=== PATIENT | male | born 1980 | race Caucasian/White ===

== ENCOUNTER → 2021-11-14 | Outpatient (CLI) | payer MEDICARE, MEDICAID, SELFPAY ==
[2021-11-14 10:11] LABS: Absolute Lymphocyte Count 1.27 X10^3/uL (0.83-4.51); Basophil# 0.02 X10^3/uL; Basophil% 0.5 % (0-1); Eosinophil# 0.05 X10^3/uL; Eosinophils% 1.3 % (0-5); Hematocrit 41.8 % (40-54); Hemoglobin 12.9 g/dL (13.0-16.5); Lymphocyte # 1.27 X10^3/ul (0.83-4.51); Lymphocyte % 33.8 % (19-41); Mean Corp Hgb Conc 30.9 g/dL (32-36); Mean Corpuscular Hgb 27.7 pg (27.0-32.0); Mean Corpuscular Volume 89.7 fL (80-94); Mean Platelet Vol. 10.3 fl (6.2-12.0); Monocyte# 0.39 X10^3/uL; Monocyte% 10.4 % (0-10); NRBC Flagged by Analyzer 0 % (0-5); Neutrophil # 2.03 X10^3/uL (2.7-7.7); Platelet Count 167 K/mm3 (150-450); RBC Distribution Width CV 14.6 % (11.6-14.6); RBC Distribution Width SD 47.8 fl (35.1-43.9); Red Blood Count 4.66 M/mm3 (4.6-6.2); White Blood Count 3.8 K/mm3 (4.4-11.0)
[2021-11-14 10:41] LABS: Hemoglobin A1c 5.9 % (3.8-5.6)
[2021-11-14 10:55] LABS: ALB/GLOB Ratio 1.1 RATIO (0.9-2.4); AST(SGOT) 20 U/L (15-37); Alanine Aminotransfer ALT/SGPT 26 U/L (16-61); Albumin, Serum 3.8 g/dL (3.2-5.0); Alkaline Phosphatase 63 U/L (45-117); Anion Gap 4 (5-15); BUN 24 mg/dL (7-18); BUN/Creat Ratio 20.2 RATIO (10-20); Calcium,Total 9.3 mg/dL (8.5-10.1); Chloride 107 mmol/L (98-107); Cholesterol 169 mg/dL (200); Creatinine, Serum 1.19 mg/dL (0.70-1.30); EST Glomerular Filtration Rate 71 mL/min (>60); Est Glom Filt Rate - Afr Amer 86 mL/min (>60); Globulin 3.5 g/dL (2.2-4.2); Glucose 98 mg/dL (74-106); High Density Lipoprotein 39 mg/dL; Potassium 4.2 mmol/L (3.5-5.1); Protein, Total 7.3 g/dL (6.4-8.2); Sodium Level 138 mmol/L (136-145); Triglycerides 53 mg/dL; Very Low Density Lipoprotein 11 mg/dL (5-40)
== END | disposition home or self-care (01) ==
PROVIDERS: PCP Family Medicine; Referring Provider Family Medicine; Visit Provider Family Medicine
DX: Z00.00 Encounter for general adult medical examination without abnormal findings (principal); F39 Unspecified mood [affective] disorder
CPT/HCPCS: 36415; 80053; 80061; 83036; 85025

== ENCOUNTER 2022-12-16 15:55 | Emergency (ER) | payer MEDICARE, MEDICAID, SELFPAY ==
[2022-12-16 15:55] VITALS: BP 113/81; PULSE 90; RESP 16; TEMP 36.3; O2SAT 97
--- NOTE | 2022-12-16 16:40 | RAD_ITS ---
STUDY: X-RAY - RIGHT HAND REASON FOR EXAM: Male, 42 years old. PT CAUGHT HAND IN A WOOD SPLITTER. LACERATION TO 5TH FINGER TECHNIQUE: 3 view(s) of the hand. COMPARISON: None. FINDINGS: Normal radiocarpal articulation. Normal distal radioulnar joint. Normal visualized carpal bones. Normal carpal articulations Normal carpometacarpal articulation of the thumb. Normal second through fifth carpometacarpal joints. Normal metacarpi. Normal metacarpophalangeal joint of the thumb. Normal interphalangeal joint of the thumb. Normal proximal and distal phalanges of the thumb. Normal metacarpophalangeal joints of the second through fifth fingers. Normal proximal and distal interphalangeal joints of the second through fifth fingers. Normal phalanges of the second through fifth fingers. Soft tissue swelling and bandage material of the fifth digit. RAD/Hand Min 3 Views IMPRESSION: Soft tissue swelling and bandage artifact of the fifth digit. No demonstrable fracture. Electronically Signed: Odin Marsh MD (Brooks) at 17:15 EDT Reading Location ID and State: [facility] / [place] , Service support ,
[2022-12-16] MEDS: Diphth,Pertuss(Acell),Tet Vac 0.5 ML Vial IM (16:44)
[2022-12-16] MEDS: Lidocaine 1% (20 ml mdv) 20 ML Vial INFILT (16:45)
--- NOTE | 2022-12-16 16:52 | EDS_ITS ---
HPI History of Present Illness Chief Complaint: Wound Narrative Narrative: Patient is a 42-year-old male with history of anxiety, depression presents to the emergency department with right fifth finger pain. Patient was using a log splitter when his tip of his finger got pinched. He does have 2 avulsion like injuries to the palmar aspect as well as the back of the finger. He has full range of motion. He is concerned secondary to the bleeding. Tetanus vaccination is unknown. PFSH PFSH Medical History no medical history Allergy/AdvReac Type Severity Reaction Status Date / Time No Known Allergies Allergy Verified 12/16/22 15:55 Social History Smoking Status: Never smoker ROS ROS ED ROS Narrative Muscle skeletal: Negative for any muscle joint pain, stiffness, myalgias, arthralgias, neck pain, back pain. Avulsion light laceration to the palmar aspect of the right fifth digit. There seems to be some laceration to the posterior side. Nailbed appears unremarkable. The nailbed appears intact. No neurological focal deficit. Full range of motion. +2 radial pulse. Neurological: Negative for any headache, syncope, numbness or tingling, dizziness Skin: Negative for any rashes, lumps, itching, abrasions, lacerations Psychiatric: Negative for any depression, anxiety, stress, suicidal ideation, homicidal ideation Hematologic: Negative for any easy bruising, excessive bruising, easy bleeding Allergies: Negative for any eczema, hives, rash EXAM Physical Exam Const Vital Signs: 12/16/22 15:55 Temperature 97.3 F L Temperature Source Temporal Pulse Rate 90 Respiratory Rate 16 Blood Pressure 113/81 H Blood Pressure Mean 91 Pulse Ox 97 Oxygen Delivery Method Room Air [facility] MDM Radiography Diagnostic Testing: Clinical Impression(s) from Imaging Studies Hand X-Ray 12/16/22 16:40 IMPRESSION: Soft tissue swelling and bandage artifact of the fifth digit. No demonstrable fracture. Electronically Signed: Odin Marsh MD (Brooks) at 17:15 EDT , Treatment and Re-Evaluation :: All radiologic examinations were read, reviewed by the emergency department attending. From these reads, a plan of care will be put in place. Patient's x-ray of the hand shows soft tissue swelling and bandage artifact of the fifth digit. No demonstratable fracture. Patient was updated on his tetanus vaccination. I did perform a digital block on the right fifth digit. I was able to irrigate copiously with 200 cc of normal saline. Unfortunate this is an avulsion leg laceration, there is no suturing available. I was able to clean up the area, cut away some soft tissue. I then used Gelfoam to wrap the finger. I did have a long conversation with the patient as well as his parents regarding wound care. They were given another Gelfoam for home. Patient will keep his hand clean and dry. 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 He was given instructions to return, all questions were answered, both the patient and the mother and father are agreeable, patient stable for discharge Discharge Plan Triage Chief Complaint: Wound ED Midlevel Provider: Jerardo Quezada ED Provider: Jerardo Crystal Dx/Rx/DC Orders Clinical Impression: Finger laceration Instructions: ED Laceration, Old: Not Sutured, ED Laceration Minimize Scars, ED Laceration Hand with ... Stand Alone Forms: ED Work / School Excuse Primary Care Provider: Josselin Reddy Referrals: Josselin Reddy MD [Primary Care Provider] - Activity Restrictions/Additional Instructions: Tomorrow in the evening you may change the dressing for the first time and use the Gelfoam. After that, change the dressing twice a day. Disposition Disposition: Home, Self Care
== END 2022-12-16 17:51 | disposition home or self-care (01) ==
PROVIDERS: Emergency Provider Emergency Medicine; PCP Family Medicine; Visit Provider Emergency Medicine
DX: S61.216A Laceration without foreign body of right little finger without damage to nail, initial encounter (principal); Z23 Encounter for immunization; W23.2XXA Caught, crushed, jammed or pinched between a moving and stationary object, initial encounter; Y93.89 Activity, other specified
CPT/HCPCS: 73130; 90715; 99282

== ENCOUNTER → 2022-12-25 | Outpatient (CLI) | payer MEDICARE, MEDICAID, SELFPAY ==
[2022-12-25 12:22] LABS: Absolute Lymphocyte Count 1.04 X10^3/uL (0.83-4.51); Absolute Neutrophil Count 1.2 X10^3/uL (2.0-7.7); Basophil# 0.02 X10^3/uL; Basophil% 0.7 % (0-1); Eosinophil# 0.07 X10^3/uL; Eosinophils% 2.5 % (0-5); Hematocrit 40.5 % (40-54); Hemoglobin 12.4 g/dL (13.0-16.5); Lymphocyte # 1.04 X10^3/ul (0.83-4.51); Lymphocyte % 37.5 % (19-41); Mean Corp Hgb Conc 30.6 g/dL (32-36); Mean Corpuscular Hgb 27.6 pg (27.0-32.0); Mean Corpuscular Volume 90.2 fL (80-94); Mean Platelet Vol. 11.1 fl (6.2-12.0); Monocyte# 0.39 X10^3/uL; Monocyte% 14.1 % (0-10); NRBC Flagged by Analyzer 0 % (0-5); Neutrophil # 1.24 X10^3/uL (2.7-7.7); Neutrophil % 44.8 % (47-70); Platelet Count 168 K/mm3 (150-450); RBC Distribution Width CV 14.9 % (11.6-14.6); RBC Distribution Width SD 49.6 fl (35.1-43.9); Red Blood Count 4.49 M/mm3 (4.6-6.2); White Blood Count 2.8 K/mm3 (4.4-11.0)
[2022-12-25 12:43] LABS: AST(SGOT) 18 U/L (15-37); Alanine Aminotransfer ALT/SGPT 27 U/L (16-61); Albumin, Serum 3.7 g/dL (3.2-5.0); Alkaline Phosphatase 82 U/L (45-117); Anion Gap 4 (5-15); BUN 23 mg/dL (7-18); BUN/Creat Ratio 21.5 RATIO (10-20); Calcium,Total 9.1 mg/dL (8.5-10.1); Chloride 106 mmol/L (98-107); Cholesterol 137 mg/dL (200); Creatinine, Serum 1.07 mg/dL (0.70-1.30); EST Glomerular Filtration Rate 80 mL/min (>60); Est Glom Filt Rate - Afr Amer 97 mL/min (>60); Globulin 3.6 g/dL (2.2-4.2); Glucose 88 mg/dL (74-106); High Density Lipoprotein 38 mg/dL; Potassium 4.1 mmol/L (3.5-5.1); Protein, Total 7.3 g/dL (6.4-8.2); Sodium Level 141 mmol/L (136-145); Triglycerides 42 mg/dL; Very Low Density Lipoprotein 8 mg/dL (5-40)
== END | disposition home or self-care (01) ==
LOC: BFHLAB 08:47
PROVIDERS: PCP Family Medicine; Referring Provider Family Medicine; Visit Provider Family Medicine
DX: Z00.00 Encounter for general adult medical examination without abnormal findings (principal); F39 Unspecified mood [affective] disorder
CPT/HCPCS: 36415; 80053; 80061; 85025

== ENCOUNTER → 2023-12-06 | Outpatient (CLI) | payer MEDICARE, MEDICAID, SELFPAY ==
[2023-12-06 12:42] LABS: Absolute Lymphocyte Count 1.02 X10^3/uL (0.83-4.51); Absolute Neutrophil Count 3.5 X10^3/uL (2.0-7.7); Basophil# 0.03 X10^3/uL; Basophil% 0.6 % (0-1); Eosinophil# 0.05 X10^3/uL; Hematocrit 41.8 % (40-54); Hemoglobin 13.2 g/dL (13.0-16.5); Lymphocyte # 1.02 X10^3/ul (0.83-4.51); Lymphocyte % 20.2 % (19-41); Mean Corp Hgb Conc 31.6 g/dL (32-36); Mean Corpuscular Hgb 27.8 pg (27.0-32.0); Mean Corpuscular Volume 88.2 fL (80-94); Mean Platelet Vol. 11.2 fl (6.2-12.0); Monocyte# 0.47 X10^3/uL; Monocyte% 9.3 % (0-10); NRBC Flagged by Analyzer 0 % (0-5); Neutrophil # 3.46 X10^3/uL (2.7-7.7); Neutrophil % 68.7 % (47-70); Platelet Count 178 K/mm3 (150-450); RBC Distribution Width CV 14.7 % (11.6-14.6); RBC Distribution Width SD 47.6 fl (35.1-43.9); Red Blood Count 4.74 M/mm3 (4.6-6.2)
[2023-12-06 13:08] LABS: ALB/GLOB Ratio 1.1 RATIO (0.9-2.4); AST(SGOT) 18 U/L (15-37); Alanine Aminotransfer ALT/SGPT 23 U/L (16-61); Albumin, Serum 4.1 g/dL (3.2-5.0); Alkaline Phosphatase 75 U/L (45-117); Anion Gap 5 (5-15); BUN 23 mg/dL (7-18); Calcium,Total 9.6 mg/dL (8.5-10.1); Chloride 105 mmol/L (98-107); Creatinine, Serum 1.15 mg/dL (0.70-1.30); EST Glomerular Filtration Rate 73 mL/min (>60); Est Glom Filt Rate - Afr Amer 89 mL/min (>60); Globulin 3.7 g/dL (2.2-4.2); Glucose 100 mg/dL (74-106); Potassium 3.8 mmol/L (3.5-5.1); Protein, Total 7.8 g/dL (6.4-8.2); Sodium Level 138 mmol/L (136-145)
== END | disposition home or self-care (01) ==
LOC: BFHLAB 09:40
PROVIDERS: PCP Family Medicine; Referring Provider Family Medicine; Visit Provider Family Medicine
DX: Z00.00 Encounter for general adult medical examination without abnormal findings (principal); F39 Unspecified mood [affective] disorder
CPT/HCPCS: 36415; 80053; 85025

== ENCOUNTER → 2024-05-15 | Outpatient (CLI) | payer MEDICARE, MEDICAID, SELFPAY ==
[2024-05-15 12:21] LABS: Absolute Lymphocyte Count 0.83 X10^3/uL (0.83-4.51); Absolute Neutrophil Count 2.2 X10^3/uL (2.0-7.7); Basophil# 0.03 X10^3/uL; Basophil% 0.8 % (0-1); Eosinophil# 0.06 X10^3/uL; Eosinophils% 1.7 % (0-5); Hematocrit 41.2 % (40-54); Hemoglobin 12.6 g/dL (13.0-16.5); Lymphocyte # 0.83 X10^3/ul (0.83-4.51); Lymphocyte % 22.9 % (19-41); Mean Corp Hgb Conc 30.6 g/dL (32-36); Mean Corpuscular Hgb 26.9 pg (27.0-32.0); Mean Platelet Vol. 10.1 fl (6.2-12.0); Monocyte# 0.49 X10^3/uL; Monocyte% 13.5 % (0-10); NRBC Flagged by Analyzer 0 % (0-5); Neutrophil % 60.8 % (47-70); Platelet Count 169 K/mm3 (150-450); RBC Distribution Width CV 14.3 % (11.6-14.6); Red Blood Count 4.68 M/mm3 (4.6-6.2); White Blood Count 3.6 K/mm3 (4.4-11.0)
[2024-05-15 12:41] LABS: AST(SGOT) 22 U/L (15-37); Alanine Aminotransfer ALT/SGPT 30 U/L (16-61); Albumin, Serum 3.9 g/dL (3.2-5.0); Alkaline Phosphatase 86 U/L (45-117); Anion Gap 5 (5-15); BUN 24 mg/dL (7-18); BUN/Creat Ratio 23.3 RATIO (10-20); Calcium,Total 9.7 mg/dL (8.5-10.1); Chloride 107 mmol/L (98-107); Cholesterol 131 mg/dL (200); Creatinine, Serum 1.03 mg/dL (0.70-1.30); EST Glomerular Filtration Rate 83 mL/min (>60); Est Glom Filt Rate - Afr Amer 101 mL/min (>60); Globulin 3.8 g/dL (2.2-4.2); Glucose 96 mg/dL (74-106); High Density Lipoprotein 40 mg/dL; Potassium 4.8 mmol/L (3.5-5.1); Protein, Total 7.7 g/dL (6.4-8.2); Sodium Level 140 mmol/L (136-145); Triglycerides 43 mg/dL; Very Low Density Lipoprotein 9 mg/dL (5-40)
[2024-05-15 14:13] LABS: Hemoglobin A1c 5.5 % (3.8-5.6)
== END | disposition home or self-care (01) ==
LOC: BFHLAB 09:39
PROVIDERS: PCP Family Medicine; Visit Provider Family Medicine
DX: Z00.00 Encounter for general adult medical examination without abnormal findings (principal); E78.5 Hyperlipidemia, unspecified; F39 Unspecified mood [affective] disorder; R73.01 Impaired fasting glucose
CPT/HCPCS: 36415; 80053; 80061; 83036; 85025

== ENCOUNTER → 2024-12-11 | Outpatient (CLI) | payer MEDICARE, MEDICAID, SELFPAY ==
[2024-12-11 12:40] LABS: Hematocrit 38.5 % (40-54); Hemoglobin 12.2 g/dL (13.0-16.5); Immature Granulocytes Count 0.000 X10^3/uL (0.0-0.0); Mean Corp Hgb Conc 31.7 g/dL (32-36); Mean Corpuscular Volume 88.1 fL (80-94); Mean Platelet Vol. 10.7 fl (6.2-12.0); NRBC Flagged by Analyzer 0 % (0-5); Platelet Count 201 K/mm3 (150-450); RBC Distribution Width CV 14.3 % (11.6-14.6); RBC Distribution Width SD 46.2 fl (35.1-43.9); Red Blood Count 4.37 M/mm3 (4.6-6.2); White Blood Count 3.1 K/mm3 (4.4-11.0)
[2024-12-11 13:17] LABS: Ferritin 153 ng/mL (37-417)
== END | disposition home or self-care (01) ==
LOC: BFHLAB 09:24
PROVIDERS: PCP Family Medicine; Visit Provider Family Medicine
DX: D64.9 Anemia, unspecified (principal)
CPT/HCPCS: 36415; 82728; 85025

== ENCOUNTER 2025-01-20 06:32 | Day surgery (SDC) | payer MEDICARE, MEDICAID, SELFPAY ==
[2025-01-20] VITALS (8 sets, daily range): BP systolic 101–114; BP diastolic 64–82; PULSE 66–75; RESP 14–16; TEMP 36.6–37.1; O2SAT 98–100; BMI 20.9
--- NOTE | 2025-01-20 07:15 | HP.PCM_ITS ---
History and Physical Date of Admission: 01/20/25 Intake Vital Signs 12/16/2314:55 01/12/2510:06 Height 5 ft 7 in 5 ft 7 in Weight: 139 lb BMI 21.7 BP 103/67 Blood Pressure Location Rt brachial Position Sitting Respiration 17 Pulse 83 Pulse Source Monitor Pulse Oximetry (%) 98 Oxygen Delivery Method room air Intake Visit Reasons: COLONOSCOPY Allergies No Known Allergies Allergy (Verified 01/12/25 10:06) PFSH Medical History (Updated 01/12/25 @ 10:05 by Rachel Friend) Acid reflux Anxiety Depression Schizoaffective disorder Family History (Updated 01/12/25 @ 10:06 by Rachel Friend) Mother Thyroid disorder Father Heart disease Social History Smoking Status: Never smoker HPI HPI HPI: Patient is a 44-year-old male here for screening colonoscopy. He denies abdominal pain or blood in the stool. He has never had a colonoscopy in the past. He has no family history of colon cancer. ROS General General: No weight change, appetite, fatigue, colon cancer, breast cancer or weakness HEENT HEENT: No difficulty swallowing, eye injury, eye surgery, swollen glands or hoarseness Endo Endocrine: No thyroid disease, diabetes mellitus, thyroid cancer, Hair loss, heat intolerance or cold intolerance Skin Skin: No rash or changing moles Musc Musculoskeletal: Yes back problems; No arthritis, rheumatoid arthritis, gout or joint pain Cardio Cardiovascular: No murmur, pacemaker, heart disease, atrial fibrillation, high blood pressure, heart attack, heart stent, palpitations, shortness of breath with exertion or chest pain Psych Psychiatric: Yes depression and anxiety; No hearing voices Resp Respiratory: No shortness of breath, No sleep apnea, No cough, No COPD, No ast hma, No emphysema and No wheezing Gastro Gastrointestinal: No abdominal pain, No nausea or vomiting, Yes diarrhea, No constipation, No blood in stool, Yes acid reflux, Yes hemorrhoids, No ulcers, No gallbladder problem and No black,tarry stools John Hematologic: No blood thinners, No blood disorders, No bleeding, No anemia and No blood clots Neuro Neurologic: No system reviewed and no additional complaints, except as documented, No as per HPI, No abnormal gait, No abnormal hearing, No abnormal movements, No abnormal speech, No behavioral changes, No burning sensations, No confusion, No convulsions, No disequilibrium, No dizziness, No localized weakness, No frequent falls, No headache(s), No lack of coordination, No loss of vision, No memory loss, No numbness, No other visual disturbances, No radicular pain, No restless legs, No sensory deficit, No syncope, No tingling, No tremor(s), No weakness and No other Exam Const General: cooperative Orientation: alert and oriented x3 HENMT Head: normal to inspection Neck Neck: normal visual inspection and full ROM Chest Chest palpation & inspection: normal inspection of the chest Resp Effort & Inspection: normal respiratory effort Auscultation: clear to auscultation bilaterally Cardio Rate: regular rate Rhythm: regular rhythm GI Inspection: non-distended Palpation: soft and nontender Skin General: no rashes or lesions noted Neuro General: patient alert and patient oriented x3 Extrem General: full ROM Psych Appearance: grossly normal Mental Status: mental status grossly normal Assessment and Plan Assessment and Plan (1) Encounter for screening for malignant neoplasm of colon: Status: Acute Plan: I explained endoscopy in detail to the patient. I explained the risks including but not limited to stroke or heart attack with anesthesia, perforation of the GI tract, bleeding, infection. I explained that any of these could necessitate further emergency surgery. The patient understands and all questions were answered sufficiently. The patient wishes to proceed with procedure. Mike Garnica MD Pager: [facility] [address] [place] [address], [address] [place] [address] Office: I have examined the patient and the H&P has been reviewed. There are no clinical changes since date of exam.
[2025-01-20] MEDS: Lactated Ringers 1,000 ML 15 ML IV (07:22)
--- NOTE | 2025-01-20 07:36 | PCM.PRE.AN2 ---
ASA Classification* ASA Classification ASA Classification: 2 Assessment & Plan Anesthesia* Anesthesia Assessment Anesthesia Assessment: Discussed sedation and/or anesthesia options, risks, benefits, and alternatives with patient/parents/legal guardian/POA. Questions invited. The patient/parents/legal guardian/POA seems to understand and agrees to proceed with anesthesia plan. Reviewed the physical assessment, medical history, allergy history and patient home medications list prior to surgery/procedure/anesthetic and documented any changes. Performed airway and anesthesia risk assessments. Anesthesia Type Anesthesia Type: MAC History Source History Obtained from:: Patient and Chart Anesthesia Focused Assessment* Temperature: 98.7 F Pulse Rate: 75 Blood Pressure: 114/80 Respiratory Rate: 16 Pulse Ox: 100 Oxygen Delivery Method: Room Air Airway Assessment Mouth opens: 2 cm Mallampati Score: IV Teeth Condition: Intact Neck Range of motion (ROM): Limited ROM (Somewhat Decreased) Labs Anesthesia Preop lab: CBC WBC, (4.4-11.0) 3.1 K/mm3 L 12/11/24, : RBC, (4.6-6.2) 4.37 M/mm3 L 12/11/24, :25 Hgb, (13.0-16.5) 12.2 g/dL L 12/11/24, :25 Hct, (40-54) 38.5 % L 12/11/24, :25 Plt Count, (150-450) 201 K/mm3 12/11/24, 09:25 CHEMISTRY Potassium, (3.5-5.1) 4.8 mmol/L 05/15/24, 09:40 Sodium, (136-145) 140 mmol/L 05/15/24, 09:40 BUN, (7-18) 24 mg/dL H 05/15/24, 09:40 Creatinine, (0.70-1.30) 1.03 mg/dL 05/15/24, :40 Glucose, (74-106) 96 mg/dL 05/15/24, 09:40 COAG Pre-Assessment Diagnosis/Proposed Procedure Planned Operative Procedure(s): COLONOSCOPY Anesthesia History Anesthesia History - cigarette tipper: Anesthesia History - cigarette tipper Hx Hospitalization No 01/14/25 15:47 Any Problems With Anesthesia No 01/14/25 15:47 Cholinesterase deficiency No 01/14/25 15:47 You/Your Family Experience No 01/14/25 15:47 fever (hyperthermia) with Relationship Recent Exposure to Contagious No 01/20/25 07:14 Disease Does patient have nerve No 01/14/25 15:47 stimulator Patient instructed to have device shut off --Does patient have Pacemaker No 01/20/25 07:15 or ICD? When Was Last Pacemaker Check QUESTION #4 FULL TEXT: You/Your Family Experience fever (hyperthermia) with Anesthesia Last Oral Intake Last Oral intake: Last Oral Intake NPO since 00:00 01/20/25 07:15 Meds taken in AM with sips of Yes 01/20/25 07:15 water? Meds patient instructed to bupropion 01/20/25 07:15 take am of surgery sertraline Any additional information?: Yes Meds taken in AM with sips of water?: Yes PONV PONV - cigarette tipper: PONV - cigarette tipper Female No 01/14/25 15:47 HX of Motion Sickness No 01/14/25 15:47 HX of N/V After Surgery No 01/14/25 15:47 Non-Smoker Yes 01/14/25 15:47 Duration of Surgery greater No 01/14/25 15:47 than 60 minutes Number of Risk Factors 1 01/14/25 15:47 PONV Score Low Risk 01/14/25 15:47 Height & Weight Height & Weight: Anesthesia: Height & Weight Height 5 ft 7 in 01/20/25 07:15 Weight: 60.7 kg 01/20/25 07:15 Body Mass Index (BMI) 20.9 01/20/25 07:15 Respiratory Assessment Respiratory Assessment - cigarette tipper: Respiratory Tract Infection Hx - cigarette tipper Hx Respiratory Tract Infection No 01/14/25 15:47 STOP Sleep Apnea STOP Sleep Apnea - cigarette tipper: STOP Sleep Apnea - cigarette tipper Hx Hypertension No 01/14/25 15:47 Hx Sleep Apnea No 01/14/25 15:47 CPAP BIPAP Do you snore loudly (louder No 01/14/25 15:47 than talking or can be heard Do you often feel tired/ No 01/14/25 15:47 fatigued/ sleepy during daytime? Has anyone observed you stop No 01/14/25 15:47 breathing during sleep? STOP Results Negative 01/14/25 15:47 QUESTION #5 FULL TEXT : Do you snore loudly (louder than talking or can be heard through closed doors)? Tobacco Use History Tobacco Use History - cigarette tipper: Tobacco Use History - cigarette tipper Tobacco Use Smoking Status Never smoker 01/14/25 15:47 Hx Tobacco Use No 01/14/25 15:47 Years Smoking Packs Smoked per Day Smoking Cessation Date was within the last 15 years Hx Smoking Cessation Date Hx Smoking Cessation Counseling Hematologic Medial History Hematologic Hx - cigarette tipper: Hematologic Medical Hx - meat blender Hx of Blood Transfusion No 01/14/25 15:47 Hx of Transfusion in last 3 No 01/14/25 15:47 Months Date of Last Transfusion (if within last 3 months) Ever experience any problems No 01/14/25 15:47 with transfusion(s)? Specify any problems Hx of Preganancy in last 3 N/A 01/14/25 15:47 Months Nurse Filling Out Transfusion [email or web address] 01/14/25 15:47 & Questions: Date: 01/14/25 01/14/25 15:47 Time: 15:49 01/14/25 15:47 Patient unable to answer at this time (ie. confused, unrespo /Reproduction History /Reproductive History - cigarette tipper: /Reproductive Hx- cigarette tipper Hx Now Gestational Age (in weeks): EDC: Hx Hx Para Hx Section SAB Active Medications Active Medications: Current Medications Generic Name Dose Route Start Last Admin Trade Name Freq PRN Reason Stop Dose Admin Lactated Ringer's 1,000 mls @ 15 mls/hr 01/20/25 07:00 01/20/25 07:22 IV 15 mls/hr .Q48H JENNY Administration PFSH Medical History Wears glasses Low iron Acid reflux Anxiety Depression Schizoaffective disorder Home Medications ?Medication ?Instructions ?Recorded ?Last Taken ?Type bupropion HCl 150 mg 24 hr tablet, 150 mg PO QAM 01/12/25 01/20/25 History extended release (Wellbutrin XL) force factor 3 cap PO DAILY 01/12/25 01/19/25 History quetiapine 25 mg tablet (Seroquel) 25 mg PO QHS 01/12/25 01/19/25 History quetiapine 50 mg tablet (Seroquel) 50 mg PO QHS 01/12/25 01/19/25 History sertraline 100 mg tablet 50 mg PO DAILY 01/14/25 01/20/25 History Allergy/AdvReac Type Severity Reaction Status Date / Time No Known Allergies Allergy Verified 01/14/25 15:45 Family History Mother Thyroid disorder Father Heart disease Surgical History (Updated 01/20/25 @ 07:[address] David New MD) Toe deformity Social History Smoking Status: Never smoker Review of Systems (Anesthesia) ROS Narrative System reviewed and no additional complaints, except as documented.
--- NOTE | 2025-01-20 08:04 | OP.PROVAT_ITS ---
01/20/2025 Josselin Reddy [facility] [address] [place] [address] Re : Colonoscopy procedure for Moody Chaidez Dear Dr. Reddy This procedure was performed on Monday, January 20, 2025. My impressions and recommendations are as follows: Impressions : - The entire examined colon is normal on direct and retroflexion views. - No specimens collected. Recommendations : - Discharge patient to home. - Resume previous diet. - Continue present medications. - Repeat colonoscopy in 10 years for screening purposes. My findings are described in the full procedure note, which is enclosed. If I can be of further assistance, please feel free to contact me at Doctor phone number(s): , Work: . Sincerely, Mike Garnica MD 01/20/2025 8:03:43 AM This report has been signed electronically.
--- NOTE | 2025-01-20 08:04 | OP.COLON_ITS ---
Patient Name: Moody Chaidez Procedure Date: 01/20/2025 7:49 AM Date of : 1980 Age: 44 Procedure: Colonoscopy Indications: Screening for colorectal malignant neoplasm Providers: Mike Garnica MD Referring MD: Josselin Reddy Medicines: Propofol per Anesthesia Patient Profile: This is a 44 year old male. Refer to note in patient chart for documentation of history and physical. Last Colonoscopy: none. The patient's first colonoscopy is today. Complications: No immediate complications. Procedure: Pre-Anesthesia Assessment: - Prior to the procedure, a History and Physical was performed, and patient medications and allergies were reviewed. The patient's tolerance of previous anesthesia was also reviewed. The risks and benefits of the procedure and the sedation options and risks were discussed with the patient. All questions were answered, and informed consent was obtained. Prior Anticoagulants: The patient has taken no anticoagulant or antiplatelet agents. After reviewing the risks and benefits, the patient was deemed in satisfactory condition to undergo the procedure. After I obtained informed consent, the scope was passed under direct vision. Throughout the procedure, the patient's blood pressure, pulse, and oxygen saturations were monitored continuously. The Colonoscope was introduced through the anus and advanced to the cecum, identified by appendiceal orifice and ileocecal valve. The colonoscopy was performed without difficulty. The patient tolerated the procedure well. The quality of the bowel preparation was good. The ileocecal valve, appendiceal orifice, and rectum were photographed. Scope In: 7:52:08 AM Scope Withdrawal Time 0 hours 6 minutes 39 seconds Scope Out: 8:01:53 AM Total Procedure Duration Time 0 hours 9 minutes 45 seconds Findings: The entire examined colon appeared normal on direct and retroflexion views. Impression: - The entire examined colon is normal on direct and retroflexion views. - No specimens collected. Recommendation: - Discharge patient to home. - Resume previous diet. - Continue present medications. - Repeat colonoscopy in 10 years for screening purposes. Procedure Code(s): --- Professional --- 44144, Colonoscopy, flexible; diagnostic, including collection of specimen(s) by brushing or washing, when performed (separate procedure) Diagnosis Code(s): --- Professional --- Z12.11, Encounter for screening for malignant neoplasm of colon CPT copyright 2021 [employer]. All rights reserved. The codes documented in this report are preliminary and upon mangle tender review may be revised to meet current compliance requirements. Mike Garnica MD 01/20/2025 8:03:43 AM This report has been signed electronically. Number of Addenda: 0 Note Initiated On: 01/20/2025 7:49 AM
--- NOTE | 2025-01-20 08:11 | PCM.POST.ANE ---
Anesthesia: Postop Eval I Current Vital Signs Temperature: 97.9 F Pulse Rate: 67 Blood Pressure: 102/76 Respiratory Rate: 16 Pulse Ox: 100 Oxygen Delivery Method: Room Air Assessment Airway patent: Yes Spontaneous unlabored respirations: Yes Mental status: Asleep nausea: No Vomiting: No Anesthesia Complication: No Fluid Hydration Crystalloid volume administer (ml): 500 Total IV fluid infused: 500 Progress Note Anesthesia document: Postop Eval 1 completed: Yes
--- NOTE | 2025-01-20 08:50 | PCM.POSTANE2 ---
Anesthesia Postop Eval I Sum Postop Eval Completion status Anesthesia document: Postop Eval 1 completed: Yes Anesthesia Postop Eval I Summary Anesthesia Postop Eval I Summary: Anesthesia Postop Eval I: Assessment Summary Airway patent Yes 01/20/25 08:12 [email or web address] Spontaneous unlabored Yes 01/20/25 08:12 [email or web address] respirations Mental status Asleep 01/20/25 08:12 [email or web address] nausea No 01/20/25 08:12 [email or web address] Vomiting No 01/20/25 08:12 [email or web address] Anesthesia Postop Eval I: Fluid Summary Crystalloid volume administer 500 01/20/25 08:12 [email or web address] (ml) Colloids volume administered ( ml) Blood Product volume administered (ml) Total IV fluid infused 500 01/20/25 08:12 [email or web address] Anesthesia Postop Eval I: Summary Notes Anesthesia Complication No 01/20/25 08:12 [email or web address] Anesthesia Complication Comment: Post-operative progress note Anesthesia: Postop Eval II Evaluation Mental status: Awake and Calm Pain Level: 0 nausea: No Vomiting: No Complications Anesthesia Complication: No
== END 2025-01-20 09:00 | disposition home or self-care (01) ==
LOC: EN 06:33 → AC 06:34
PROVIDERS: PCP Family Medicine; Referring Provider Family Medicine; Visit Provider Surgery
PROC: 0DJD8ZZ Inspection of Lower Intestinal Tract, Via Natural or Artificial Opening Endoscopic (ICD-10-PCS; CPT 45378; principal; 2025-01-20 07:25)
DX: Z12.11 Encounter for screening for malignant neoplasm of colon (principal); K21.9 Gastro-esophageal reflux disease without esophagitis; F41.9 Anxiety disorder, unspecified; F32.A Depression, unspecified; Z79.899 Other long term (current) drug therapy
CPT/HCPCS: G0121; J2405